=== PATIENT | female | born 1995 | race Caucasian/White ===

== ENCOUNTER 2018-03-12 22:55 | Emergency (ER) | payer BC, OTHER ==
[2018-03-13] MEDS ORDERED: BENZONATATE 100 MG CAP PO ONE (00:26)
[2018-03-13] MEDS ORDERED: predniSONE 20 MG TAB ONE (00:26)
[2018-03-13] MEDS ORDERED: LEVALBUTEROL 1.25 MG/3 ML NEB ONE (00:26)
[2018-03-13 01:17] LABS: Urine Blood NEGATIVE (NEG); Urine Glucose NEGATIVE (NEG); Urine Protein NEGATIVE (NEG); Urine Specific Gravity 1.015 (1.005-1.030)
--- NOTE | 2018-03-13 01:20 | EDPHYS ---
Physician Documentation [facility] Name: Zach Fuller Age: 22 yrs Sex: Female : 1995 Arrival Date: 03/12/2018 Time: 22:56 Bed 24 Private MD: ED Physician Christian Candelario HPI: 03/12 23:48 This 22 yrs old Female presents to ER via Ambulatory with complaints of cp Cough, Headache, Dizziness. 23:48 The patient or guardian reports cough, that is intermittent, with no sputum. cp 23:48 Onset: The symptoms/episode began/occurred 1 week(s) ago. Severity of symptoms: in the cp emergency department the symptoms are unchanged, despite home interventions. Associated signs and symptoms: Pertinent positives: dizziness, headache with cough, Pertinent negatives: chest pain, ear ache, fever, sore throat, vomiting. 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 - Social history:: Smoking status: Patient/guardian denies using tobacco. - Ebola Screening: : Patient negative for fever greater than or equal to 101.5 degrees Fahrenheit, and additional compatible Ebola Virus Disease symptoms Patient denies exposure to infectious person Patient denies travel to an Ebola-affected area in the 21 days before illness onset. ROS: 03/13 00:00 Constitutional: Negative for body aches, chills, fever, poor PO intake. cp 00:00 Eyes: Negative for injury, pain, redness, and discharge. cp 00:00 ENT: Negative for drainage from ear(s), ear pain, sore throat, difficulty swallowing, difficulty handling secretions. 00:00 Neck: Negative for pain with movement, pain at rest, stiffness, swollen nodes, tenderness. 00:00 Cardiovascular: Negative for chest pain, edema, palpitations. 00:00 Respiratory: Positive for cough, with no reported sputum, Negative for wheezing. 00:00 Abdomen/GI: Negative for abdominal pain, nausea, vomiting, and diarrhea, constipation. 00:00 Back: Negative for pain at rest, pain with movement, radiated pain. 00:00 : Negative for urinary symptoms. 00:00 Skin: Negative for cellulitis, rash. 00:00 Neuro: Positive for dizziness, headache when coughing, Negative for altered mental status, syncope, near syncope. 00:00 All other systems are negative. Exam: 00:08 Constitutional: The patient appears in no acute distress, alert, awake, non-toxic, well cp developed, well nourished. 00:08 Head/Face: Normocephalic, atraumatic. cp 00:08 Eyes: Periorbital structures: appear normal, Pupils: equal, round, and reactive to light and accomodation, Extraocular movements: intact throughout, Conjunctiva: normal, no exudate, no injection, Sclera: no appreciated abnormality, Lids and lashes: appear normal, bilaterally. 00:08 ENT: External ear(s): are unremarkable, Ear canal(s): are normal, clear, TM's: bulging, is not appreciated, bilaterally, dullness, bilaterally, erythema, is not appreciated, bilaterally, Nose: is normal, Mouth: Lips: moist, Oral mucosa: pink and intact, moist, Posterior pharynx: Airway: no evidence of obstruction, patent, Tonsils: are normal in appearance, Uvula: midline, swelling, is not appreciated, erythema, is not appreciated, exudate, is not appreciated, Voice: is normal. 00:08 Neck: ROM/movement: is normal, is supple, without pain, no range of motions limitations, no meningismus, no nuchal rigidity, Lymph nodes: no appreciated lymphadenopathy. 00:08 Chest/axilla: Inspection: normal, Palpation: is normal, no crepitus, no tenderness. 00:08 Cardiovascular: Rate: tachycardic, Rhythm: regular, Edema: is not appreciated, JVD: is not appreciated. 00:08 Respiratory: the patient does not display signs of respiratory distress, Respirations: normal, no use of accessory muscles, no retractions, no splinting, no tachypnea, labored breathing, is not present, Breath sounds: are clear throughout, no decreased breath sounds, no stridor, no wheezing. 00:08 Abdomen/GI: Inspection: abdomen appears normal, Bowel sounds: normal, in all quadrants, Palpation: abdomen is soft and non-tender, in all quadrants. 00:08 Back: pain, is absent, ROM is normal. 00:08 Skin: cellulitis, is not appreciated, no rash present. Vital Signs: 03/12 23:10 BP 125 / 86; Pulse 108; Resp 22; Temp 98.1(TE); Pulse Ox 99% ; Weight 49.9 kg (R); fc Height 4 ft. 9 in. (144.78 cm) (R); Pain 7/10; 03/13 00:44 BP 137 / 78; Pulse 102; Resp 18; Pulse Ox 98% on R/A; tl3 01:29 BP 116 / 76; Pulse 101; Resp 18; Pulse Ox 99% on R/A; rk2 03/12 23:10 Body Mass Index 23.80 (49.90 kg, 144.78 cm) fc MDM: 03/12 23:36 Patient medically screened. cp 03/13 00:00 Differential Diagnosis: Bronchitis Influenza Upper Respiratory Infection Otitis Media cp Viral Syndrome Pneumonia. 01:17 Data reviewed: vital signs, nurses notes, lab test result(s), radiologic studies, plain cp films. 01:17 Test interpretation: by ED physician or midlevel provider: plain radiologic studies. cp Counseling: I had a detailed discussion with the patient and/or guardian regarding: the historical points, exam findings, and any diagnostic results supporting the discharge/admit diagnosis, lab results, radiology results, to return to the emergency department if symptoms worsen or persist or if there are any questions or concerns that arise at home. Response to treatment: the patient's symptoms have mildly improved after treatment, and as a result, I will discharge patient. 03/13 00:42 Order name: Urine Dipstick--Ancillary (enter results) 2 03/13 00:42 Order name: Urine --Ancillary (enter results) [facility] 03/13 00:02 Order name: XRAY Chest Pa And Lat (2 Views) cp 03/13 00:02 Order name: Urine Dipstick-Ancillary (obtain specimen); Complete Time: 00:34 cp 03/13 00:02 Order name: Urine Test (obtain specimen); Complete Time: 00:34 cp Administered Medications: 00:33 Drug: predniSONE 40 mg Route: PO; rk2 00:48 Follow up: Response: No adverse reaction tl3 00:34 Drug: Xopenex 1.25 mg Route: Inhalation; rk2 00:44 Follow up: Response: No adverse reaction tl3 00:34 Drug: Tessalon Perle 100 mg Route: PO; rk2 00:48 Follow up: Response: No adverse reaction tl3 Disposition: 03/13/18 01:19 Discharged to Home. Impression: Cough, Headache - from cough. - Condition is Stable. - Discharge Instructions: General Headache Without Cause, Cool Mist Vaporizers, Cough, Adult. - Prescriptions for Tessalon Perles 100 mg Oral Capsule - take 1 capsule by ORAL route every 8 hours As needed may take 1-2 capsules every 8 hours as needed for cough; 20 capsule. Prednisone 20 mg Oral Tablet - take 2 tablets by ORAL route once daily for 4 days; 8 tablet. Albuterol Sulfate 90 mcg/actuation - inhale 1-2 puff by INHALATION route every 4-6 hours; 1 Inhaler. - Medication Reconciliation Form, Thank You Letter, Antibiotic Education, Prescription Opioid Use form. - Follow up: Private Physician; When: 1 week; Reason: symptoms continue. - Problem is new. - Symptoms have improved. Addendum: 03/14/2018 13:16 Co-signature as Attending Physician, Christian Candelario MD Available for consultation at p s1 all times. . Signatures: Dispatcher [employer] EDShira Velásquez RN RN fc Tonio Mckeon PA PA cp Christian Candelario MD MD ps1 Palak Charles RN RN rk2 Emma Wallis RN tl3 Corrections: (The following items were deleted from the chart) 03/13 01:07 03/12 23:58 This 22 yrs old Female presents to ER via Ambulatory with cp complaints of Cough, Headache, Dizziness. cp 03/13 01:31 01:19 03/13/2018 01:19 Discharged to Home. Impression: Cough; Headache - from cough. rk2 Condition is Stable. Forms are Medication Reconciliation Form, Thank You Letter, Antibiotic Education, Prescription Opioid Use. Follow up: Private Physician; When: 1 week; Reason: symptoms continue. Problem is new. Symptoms have improved. cp
--- NOTE | 2018-03-13 01:20 | ER ---
Nurse's Notes [facility] Name: Zach Fuller Age: 22 yrs Sex: Female : 1995 Arrival Date: 03/12/2018 Time: 22:56 Bed 24 Private MD: Diagnosis: Cough;Headache-from cough Presentation: 03/12 23:07 Presenting complaint: Patient states: that she has a cough. When she coughs it gets her fc a headache and she has trouble breathing. Denies any fever, sore throat or ear pain. Transition of care: patient was not received from another setting of care. Onset of symptoms was March 05, 2018. Risk Assessment: Do you want to hurt yourself or someone else?. Initial Sepsis Screen: Does the patient meet any 2 criteria? No. Patient's initial sepsis screen is negative. Does the patient have a suspected source of infection? No. Patient's initial sepsis screen is negative. Care prior to arrival: None. 23:07 Method Of Arrival: Ambulatory 23:07 Acuity: GENE 4 fc Triage Assessment: 23:10 Headache History: Other headache is from coughing. General: Appears comfortable, fc slender, Behavior is calm, cooperative, appropriate for age. Pain: Complains of pain in head Pain currently is 7 out of 10 on a pain scale. at worst was 9 out of 10 on a pain scale. Quality of pain is described as aching, Pain began gradually, Is continuous, Also complains of photophobia. EENT: No deficits noted. Neuro: Level of Consciousness is awake, alert, obeys commands, Oriented to person, place, time, situation, Reports headache. Cardiovascular: No deficits noted. Respiratory: Reports cough that is Airway is patent Trachea midline Respiratory effort is even, unlabored, Respiratory pattern is regular, symmetrical, Onset: The symptoms/episode began/occurred gradually, the patient has mild shortness of breath. GI: No deficits noted. : No deficits noted. Derm: Skin is pink, warm \T\ dry. Musculoskeletal: Circulation, motion, and sensation intact. Capillary refill < 3 seconds, Range of motion: intact in all extremities. 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 - Social history:: Smoking status: Patient/guardian denies using tobacco. - Ebola Screening: : Patient negative for fever greater than or equal to 101.5 degrees Fahrenheit, and additional compatible Ebola Virus Disease symptoms Patient denies exposure to infectious person Patient denies travel to an Ebola-affected area in the 21 days before illness onset. Screenin:30 Abuse screen: Denies threats or abuse. Nutritional screening: No deficits noted. tl3 Tuberculosis screening: No symptoms or risk factors identified. Fall Risk None identified. Assessment: 23:30 General: Appears in no apparent distress. uncomfortable, well groomed, well developed, tl3 well nourished, Behavior is calm, cooperative, appropriate for age. Pain: Complains of pain in chest and throat with deep breathing and cough. Neuro: Level of Consciousness is awake, alert, obeys commands. Cardiovascular: Heart tones S1 S2 present Patient's skin is warm and dry. Respiratory: Reports cough that is persistent Airway is patent Respiratory effort is even, unlabored, Respiratory pattern is regular, symmetrical. GI: No signs and/or symptoms were reported involving the gastrointestinal system. : No signs and/or symptoms were reported regarding the genitourinary system. EENT: No signs and/or symptoms were reported regarding the EENT system. EENT: Throat is reddened. Derm: No signs and/or symptoms reported regarding the dermatologic system. Musculoskeletal: No signs and/or symptoms reported regarding the musculoskeletal system. 03/13 00:44 Reassessment: No changes from previously documented assessment. Patient and/or family tl3 updated on plan of care and expected duration. Pain level reassessed. Patient is alert, oriented x 3, equal unlabored respirations, skin warm/dry/pink. no needs at this time. Vital Signs: 03/12 23:10 BP 125 / 86; Pulse 108; Resp 22; Temp 98.1(TE); Pulse Ox 99% ; Weight 49.9 kg (R); fc Height 4 ft. 9 in. (144.78 cm) (R); Pain 7/10; 03/13 00:44 BP 137 / 78; Pulse 102; Resp 18; Pulse Ox 98% on R/A; tl3 01:29 BP 116 / 76; Pulse 101; Resp 18; Pulse Ox 99% on R/A; rk2 03/12 23:10 Body Mass Index 23.80 (49.90 kg, 144.78 cm) ED Course: 03/12 22:56 Patient arrived in ED. ds1 23:09 Triage completed. fc 23:10 Arm band placed on Patient placed in an exam room, on a stretcher. fc 23:16 Emma Wallis, RN is Primary Nurse. tl3 23:30 Patient has correct armband on for positive identification. Bed in low position. Call tl3 light in reach. Side rails up X 1. Adult w/ patient. 23:30 No provider procedures requiring assistance completed. Patient did not have IV access tl3 during this emergency room visit. 23:36 Tonio Mckeon PA is PHCP. cp 23:36 Christian Candelario MD is Attending Physician. cp 03/13 00:18 XRAY Chest Pa And Lat (2 Views) In Process Unspecified. EDMS Administered Medications: 00:33 Drug: predniSONE 40 mg Route: PO; rk2 00:48 Follow up: Response: No adverse reaction tl3 00:34 Drug: Xopenex 1.25 mg Route: Inhalation; rk2 00:44 Follow up: Response: No adverse reaction tl3 00:34 Drug: Tessalon Perle 100 mg Route: PO; rk2 00:48 Follow up: Response: No adverse reaction tl3 Outcome: 01:19 Discharge ordered by MD. cp 01:30 Discharged to home ambulatory. rk2 01:30 Condition: improved 01:30 Discharge instructions given to patient, Prescriptions given X 3. 01:31 Patient left the ED. rk2 Signatures: Dispatcher [employer] EDMS Shira Fields RN RN Symone Vera ds1 Tonio Mckeon PA PA cp Palak Charles RN RN rk2 Emma Wallis, RADHIKA RN tl3 Corrections: (The following items were deleted from the chart) 03/12 23:13 23:10 LMP 01/25/2018 [facility]
--- NOTE | 2018-03-13 09:49 | RAD REPORT ---
EXAM DESCRIPTION: RAD - Chest Pa And Lat (2 Views) - 03/13/2018 12:19 am CLINICAL HISTORY: Cough and congestion, shortness of breath COMPARISON: None. TECHNIQUE: PA and lateral views of the chest were obtained. FINDINGS: The lungs are clear. Heart size is normal and central vasculature is within normal limit s. No pleural effusion or pneumothorax seen. No acute bony finding noted. No aortic abnormality. IMPRESSION: No acute cardiopulmonary process.
== END 2018-03-13 01:31 | disposition home or self-care (01) ==
LOC: ER 22:55
DX: R05 Cough (principal); R51 Headache; R42 Dizziness and giddiness
CPT/HCPCS: 71046; 81003; 81025; 99284; J7512

== ENCOUNTER 2019-01-04 00:12 | Emergency (ER) | payer BC ==
[2019-01-04] MEDS ORDERED: TRAMADOL HCL 50 MG TAB ONE (00:47)
[2019-01-04 01:33] LABS: Urine Blood NEGATIVE (NEG); Urine Glucose NEGATIVE (NEG); Urine Protein NEGATIVE (NEG); Urine pH 7.5 (5.0-7.0)
--- NOTE | 2019-01-04 03:07 | EDPHYS ---
Physician Documentation [facility] Name: Zach Fuller Age: 23 yrs Sex: Female : 1995 Arrival Date: 01/04/2019 Time: 00:14 Bed 5 Private MD: ED Physician Alexis Etienne HPI: 01/04 00:33 This 23 yrs old Female presents to ER via Ambulatory with complaints of pkl Headache. 00:33 The patient complains of pain to the top of head, forehead, right jainism and left pkl jainism. The patient describes the headache as constant. Onset: The symptoms/episode began/occurred 2 week(s) ago. Associated signs and symptoms: Pertinent positives: cough. 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 - Social history:: Smoking status: Patient uses tobacco products, smokes one-half pack cigarettes per day. - Ebola Screening: : No symptoms or risks identified at this time. ROS: 00:33 Eyes: Negative for injury, pain, redness, and discharge, ENT: Negative for injury, pkl pain, and discharge, Neck: Negative for injury, pain, and swelling, Cardiovascular: Negative for chest pain, palpitations, and edema. 00:33 Respiratory: Positive for cough, with no reported sputum. 00:33 Abdomen/GI: Negative for abdominal pain, nausea, vomiting, and diarrhea. 00:33 Back: Negative for acute changes. 00:33 : Negative for urinary symptoms. 00:33 MS/extremity: Negative for acute changes. 00:33 Skin: Negative for rash. 00:33 Neuro: Negative for altered mental status. Exam: 00:33 Head/Face: Normocephalic, atraumatic. Eyes: Pupils equal round and reactive to light, pkl extra-ocular motions intact. Lids and lashes normal. Conjunctiva and sclera are non-icteric and not injected. Cornea within normal limits. Periorbital areas with no swelling, redness, or edema. ENT: Nares patent. No nasal discharge, no septal abnormalities noted. Tympanic membranes are normal and external auditory canals are clear. Oropharynx with no redness, swelling, or masses, exudates, or evidence of obstruction, uvula midline. Mucous membranes moist. Neck: Trachea midline, no thyromegaly or masses palpated, and no cervical lymphadenopathy. Supple, full range of motion without nuchal rigidity, or vertebral point tenderness. No Meningismus. Chest/axilla: Normal chest wall appearance and motion. Nontender with no deformity. No lesions are appreciated. Cardiovascular: Regular rate and rhythm with a normal S1 and S2. No gallops, murmurs, or rubs. Normal PMI, no JVD. No pulse deficits. Respiratory: Lungs have equal breath sounds bilaterally, clear to auscultation and percussion. No rales, rhonchi or wheezes noted. No increased work of breathing, no retractions or nasal flaring. Abdomen/GI: Soft, non-tender, with normal bowel sounds. No distension or tympany. No guarding or rebound. No evidence of tenderness throughout. Back: No spinal tenderness. No costovertebral tenderness. Full range of motion. Skin: Warm, dry with normal turgor. Normal color with no rashes, no lesions, and no evidence of cellulitis. MS/ Extremity: Pulses equal, no cyanosis. Neurovascular intact. Full, normal range of motion. Neuro: Awake and alert, GCS 15, oriented to person, place, time, and situation. Cranial nerves II-XII grossly intact. Motor strength 5/5 in all extremities. Sensory grossly intact. Cerebellar exam normal. Normal gait. Vital Signs: 00:22 BP 131 / 84; Pulse 98; Resp 16; Temp 97.7(O); Pulse Ox 99% on R/A; Weight 58.97 kg (R); ak1 Height 4 ft. 9 in. (144.78 cm); Pain 7/10; 01:30 BP 125 / 70; Pulse 90; Resp 17; Pulse Ox 99% ; Pain 5/10; rr5 02:20 BP 116 / 61; Pulse 80; Resp 17; Pulse Ox 100% ; rr5 03:00 BP 118 / 70; Pulse 95; Resp 17; Pulse Ox 99% ; Pain 0/10; rr5 00:22 Body Mass Index 28.13 (58.97 kg, 144.78 cm) ak1 MDM: 00:18 Patient medically screened. pkl 03:05 Data reviewed: vital signs, nurses notes, radiologic studies, CT scan. pkl 01/04 00:48 Order name: Urine Dipstick--Ancillary (enter results); Complete Time: 02:01 mw2 01/04 00:48 Order name: Urine --Ancillary (enter results); Complete Time: 02:01 2 01/04 00:32 Order name: CT Head Brain wo Cont pkl Administered Medications: 00:39 Drug: UltRAM 50 mg Route: PO; rr5 03:00 Follow up: Response: No adverse reaction rr5 Disposition: 01/04/19 03:06 Discharged to Home. Impression: Acute headache. Sinusitis. - Condition is Stable. - Prescriptions for Ultram 50 mg Oral Tablet - take 1 tablet by ORAL route every 8 hours As needed; 20 tablet. Zithromax Z- Hunter 250 mg Oral Tablet - take 1 tablet by ORAL route as directed for 5 days Day 1 - take two (2) tablets one time. Day 2, 3, 4 , 5 take one (1) tablet once daily.; 6 tablet. Guaifenesin AC 10- 100 mg/5 mL Oral Liquid - take 10 milliliters by ORAL route every 8 hours As needed; 120 milliliter. - Medication Reconciliation Form, Thank You Letter, Antibiotic Education, Prescription Opioid Use, Work release form form. - Follow up: Private Physician; When: 2 - 3 days; Reason: Re-evaluation by your physician. - Problem is new. - Symptoms have improved. Signatures: Dispatcher [employer] EDMO Alexis Etienne MD MD pkl Arabella Marte RN RN ak1 Yahir Boudreaux RN RN rr5 Corrections: (The following items were deleted from the chart) 03:16 03:06 01/04/2019 03:06 Discharged to Home. Impression: Acute headache. Sinusitis. rr5 Condition is Stable. Forms are Medication Reconciliation Form, Thank You Letter, Antibiotic Education, Prescription Opioid Use. Follow up: Private Physician; When: 2 - 3 days; Reason: Re-evaluation by your physician. Problem is new. Symptoms have improved. pkl
--- NOTE | 2019-01-04 03:07 | ER ---
Nurse's Notes [facility] Name: Zach Fuller Age: 23 yrs Sex: Female : 1995 Arrival Date: 01/04/2019 Time: 00:14 Bed 5 Private MD: Diagnosis: Acute headache. 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 Transition of ak1 care: patient was not received from another setting of care. Onset of symptoms is unknown. Risk Assessment: Do you want to hurt yourself or someone else? Patient reports no desire to harm self or others. Care prior to arrival: None. 00:23 Method Of Arrival: Ambulatory ak1 00:23 Acuity: GENE 4 ak1 01:00 Initial Sepsis Screen: Does the patient meet any 2 criteria? No. Patient's initial rr5 sepsis screen is negative. Does the patient have a suspected source of infection? No. Patient's initial sepsis screen is negative. Triage Assessment: 00:24 Headache History: Other pt stated headache increased since getting over the flu. ak1 General: Appears in no apparent distress. Behavior is calm, cooperative. Pain: Complains of pain in headache. Pain: Pain currently is 7 out of 10 on a pain scale. 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 Neuro: Level of Consciousness is awake, alert, obeys commands, Oriented to person, place, time, situation, Clinical Case Manager are equal bilaterally Moves all extremities. Gait is steady, Speech is normal, Facial symmetry appears normal. 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 - Social history:: Smoking status: Patient uses tobacco products, smokes one-half pack cigarettes per day. - Ebola Screening: : No symptoms or risks identified at this time. Screenin:00 Abuse screen: Denies threats or abuse. Denies injuries from another. Nutritional rr5 screening: No deficits noted. Tuberculosis screening: No symptoms or risk factors identified. Fall Risk None identified. Total Shepherd Fall Scale indicates No Risk (0-24 pts). Assessment: 00:30 General: Appears in no apparent distress. uncomfortable, Behavior is calm, cooperative, rr5 appropriate for age. 00:30 Pain: Complains of pain in head Pain does not radiate. Pain currently is 8 out of 10 on rr5 a pain scale. Quality of pain is described as aching, Pain began gradually, Is intermittent. Neuro: Level of Consciousness is awake, alert, obeys commands, Oriented to person, place, time, situation, Appropriate for age Clinical Case Manager are equal bilaterally Gait is steady, Speech is normal, Facial symmetry appears normal, Reports headache. Cardiovascular: Capillary refill < 3 seconds Patient's skin is warm and dry. Respiratory: Reports cough that is Airway is patent Respiratory effort is even, unlabored, Respiratory pattern is regular, symmetrical. GI: No signs and/or symptoms were reported involving the gastrointestinal system. : No signs and/or symptoms were reported regarding the genitourinary system. EENT: No signs and/or symptoms were reported regarding the EENT system. Derm: Skin is intact, Skin temperature is warm. Musculoskeletal: Circulation, motion, and sensation intact. Capillary refill < 3 seconds. 01:20 Reassessment: Patient appears in no apparent distress at this time. Patient is alert, rr5 oriented x 3, equal unlabored respirations, skin warm/dry/pink. awaiting for result Patient states symptoms have improved. 02:00 Reassessment: Patient appears in no apparent distress at this time. Patient is alert, rr5 oriented x 3, equal unlabored respirations, skin warm/dry/pink. no complaints made. 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 03:00 Reassessment: Patient appears in no apparent distress at this time. Patient is alert, rr5 oriented x 3, equal unlabored respirations, skin warm/dry/pink. discharge instruction given and explained without complaints made. Patient denies pain at this time. Patient states feeling better. Patient states symptoms have improved. Vital Signs: 00:22 BP 131 / 84; Pulse 98; Resp 16; Temp 97.7(O); Pulse Ox 99% on R/A; Weight 58.97 kg (R); ak1 Height 4 ft. 9 in. (144.78 cm); Pain 7/10; 01:30 BP 125 / 70; Pulse 90; Resp 17; Pulse Ox 99% ; Pain 5/10; rr5 02:20 BP 116 / 61; Pulse 80; Resp 17; Pulse Ox 100% ; rr5 03:00 BP 118 / 70; Pulse 95; Resp 17; Pulse Ox 99% ; Pain 0/10; rr5 00:22 Body Mass Index 28.13 (58.97 kg, 144.78 cm) ak1 ED Course: 00:14 Patient arrived in ED. am2 00:18 Alexis Etienne MD is Attending Physician. pkl 00:22 Arm band placed on Patient placed in an exam room, on a stretcher, Patient notified of ak1 wait time. 00:23 Triage completed. ak1 00:25 Patient has correct armband on for positive identification. Bed in low position. Call ak1 light in reach. Side rails up X 1. Pulse ox on. NIBP on. 00:39 Yahir Boudreaux, RN is Primary Nurse. rr5 02:09 CT Head Brain wo Cont In Process Unspecified. EDMS 03:00 No provider procedures requiring assistance completed. Patient did not have IV access rr5 during this emergency room visit. Administered Medications: 00:39 Drug: UltRAM 50 mg Route: PO; rr5 03:00 Follow up: Response: No adverse reaction rr5 Outcome: 03:06 Discharge ordered by . pkl 03:10 Discharged to home ambulatory. rr5 03:10 Condition: stable 03:10 Discharge instructions given to patient, Instructed on discharge instructions, follow up and referral plans. medication usage, Demonstrated understanding of instructions, follow-up care, medications, Prescriptions given X 3. 03:16 Patient left the ED. rr5 Signatures: Dispatcher [employer] EDAZ Alexis Etienne MD MD pkl Arabella Marte RN RN ak1 Fina Matthews am2 Yahir Boudreaux, RN RN rr5 Corrections: (The following items were deleted from the chart) 05:19 05:18 No provider procedures requiring assistance completed. rr5 rr5 05:19 05:18 Patient did not have IV access during this emergency room visit. rr5 rr5
--- NOTE | 2019-01-05 10:58 | RAD REPORT ---
EXAM DESCRIPTION: Head Brain Wo Cont CLINICAL HISTORY: 23 years Female HEADACHE COMPARISON: None Technique: Contiguous axial images of the brain were obtained without the administration of intrave nous contrast.This exam was performed according to our departmental dose-optimization program which i ncludes use of Automated Exposure Control, adjustment of the mA and/or kV according to patient size a nd/or use of iterative reconstruction technique. FINDINGS: Brain: No acute intracranial hemorrhage. No acute territorial infarct. No extra-axial gamaliel ection. No mass effect or herniation. Ventricles: Normal in size and configuration. Globes and orbits: No acute abnormality. Bones: No acute osseous finding. Paranasal sinuses: Paranasal sinuses are clear. Mastoid air cells: Well pneumatized.. Soft tissues: Within normal limits IMPRESSION: No acute intracranial abnormality. Electronically signed by: Robert Busch DO 01/04/2019 2:25 AM CDT Due to temporary technical issues with the PACS/Fluency reporting system, reports are being signed by the in house radiologist as a courtesy to ensure prompt reporting. The interpreting radiologist is f ully responsible for the content of the report.
== END 2019-01-04 03:16 | disposition home or self-care (01) ==
LOC: ER 00:12
DX: R51 Headache (principal); J01.90 Acute sinusitis, unspecified; R05 Cough; F90.9 Attention-deficit hyperactivity disorder, unspecified type; F17.210 Nicotine dependence, cigarettes, uncomplicated
CPT/HCPCS: 70450; 81003; 81025; 99284